=== PATIENT | female | born 1960 | race Native Hawaiian/Other Pacific Islander ===

== ENCOUNTER 2018-01-27 11:44 | Emergency (ER) | payer MEDICAID, OTHER ==
--- NOTE | 2018-01-27 12:29 | C.PDOC ---
History Of Present Illness 57 year old female presents to the ER with a complaint of left knee pain and right shoulder pain since yesterday. Denies fall, direct trauma, weakness, or numbness. Chief Complaint (Nursing): Lower Extremity Problem/Injury History Per: Patient History/Exam Limitations: no limitations Onset/Duration Of Symptoms: Days Current Symptoms Are (Timing): Still Present Recent travel outside of the [place]: No Past Medical History Reviewed: Historical Data, Nursing Documentation, Vital Signs Vital Signs: Last Vital Signs Temp 98.1 F 01/27/18 13:45 Pulse 73 01/27/18 13:45 Resp 16 01/27/18 13:45 BP 164/76 H 01/27/18 13:45 Pulse Ox 97 01/27/18 16:18 - Medical History PMH: HTN, Hypercholesterolemia Family History: States: Unknown Family Hx - Social History Hx Alcohol Use: No Hx Substance Use: No - Immunization History Hx Tetanus Toxoid Vaccination: No Hx Influenza Vaccination: No Hx Pneumococcal Vaccination: No Review Of Systems Musculoskeletal: Positive for: Shoulder Pain, Leg Pain Neurological: Negative for: Weakness, Numbness Physical Exam - Physical Exam Appears: Non-toxic, No Acute Distress Skin: Normal Color, Warm, Dry Head: Atraumatic, Normacephalic Eye(s): bilateral: Normal Inspection Extremity: Other (Left knee suprapatellar effusion with arthritic changes, diffuse tenderness, and decreased ROM. Right shoulder with diffuse tenderness and decreased ROM.) Neurological/Psych: Oriented x3, Normal Speech, Normal Motor, Normal Sensation ED Course And Treatment O2 Sat by Pulse Oximetry: 97 (Room air) Pulse Ox Interpretation: Normal Progress Note: Motrin administered. Left knee and right shoulder x-ray ordered. Disposition - Disposition Referrals: Eugene Epstein III, MD [Staff Provider] - Isma Guevara MD [Staff Provider] - Disposition: HOME/ ROUTINE Disposition Time: 12:20 Condition: GOOD Additional Instructions: Thank you for letting us take care of you today. The emergency medical care you received today was directed at your acute symptoms. If you were prescribed any medication, please fill it and take as directed. It may take several days for your symptoms to resolve. Return to the Emergency Department if your symptoms worsen, do not improve, or if you have any other problems. Please contact your doctor or call one of the physicians/clinics you have been referred to that are listed on the Patient Visit Information form that is included in your discharge packet. Bring any paperwork you were given at discharge with you along with any medications you are taking to your follow up visit. Our treatment cannot replace ongoing medical care by a primary care provider (PCP) outside of the emergency department. Thank you for allowing the [facility] team to be part of your care today. Follow up with your primary doctor and the orthopedic doctor in 3-5 days for re- evaluation and further management. Prescriptions: traMADol [Ultram] 50 mg PO Q8 PRN #15 tab PRN Reason: Pain, Severe (8-10) Instructions: Osteoarthritis (DC), Knee Pain (DC) Forms: [facility] (Kazakh) - Clinical Impression Clinical Impression: Arthritis, Joint pain - Scribe Statement The provider has reviewed the documentation as recorded by the Scribbreanna Akins All medical record entries made by the Scribe were at my direction and personally dictated by me. I have reviewed the chart and agree that the record accurately reflects my personal performance of the history, physical exam, medical decision making, and the department course for this patient. I have also personally directed, reviewed, and agree with the discharge instructions and disposition.
[2018-01-27 13:46] VITALS: BP 164/76; PULSE 73; RESP 16; TEMP 98.1
--- NOTE | 2018-01-27 13:58 | RAD ---
PROCEDURE: Radiographs of the Right Shoulder HISTORY: Rule out fracture COMPARISON: No prior. FINDINGS: BONES: Normal. No fracture. JOINTS: Normal. Glenohumeral and acromioclavicular joints preserved. 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 OTHER FINDINGS: Questionable vessel on-end artifact right suprahilar region versus is small right suprahilar nodule. Followup nonemergent CT scan of the chest recommended for further evaluation IMPRESSION: No evidence of acute displaced fracture nor dislocation. Mild degenerative osteoarthritis right glenohumeral and acromioclavicular joints. Probable vessel on end artifact versus small nodule right suprahilar region. Followup nonemergent CT scan chest recommended for further evaluation
--- NOTE | 2018-01-27 13:59 | RAD ---
PROCEDURE: Left Knee Radiographs. HISTORY: Pain. COMPARISON: None. FINDINGS: BONES: No evidence of acute displaced fracture nor dislocation. The osseous structures appear intact. JOINTS: Tricompartmental degenerative osteoarthritis most notably affecting the medial and patellofemoral compartments. . Lateral marginal osteophyte seen projecting off of the lateral tibial plateau and lateral femoral condyles. Small medial marginal osteophyte formation noted. Slight spurring of the tibial spines. JOINT EFFUSION: Large suprapatellar joint effusion. OTHER FINDINGS: None. IMPRESSION: No definitive radiographic evidence of acute displaced fracture nor dislocation. Tricompartmental degenerative osteoarthritis most notably affecting the lateral and patellofemoral compartments. Large suprapatellar joint effusion.
[2018-01-27 16:17] VITALS: O2SAT 97
== END 2018-01-27 14:31 | disposition home or self-care (01) ==
LOC: C.ER 11:44
DX: M25.562 Pain in left knee (principal); M25.511 Pain in right shoulder

== ENCOUNTER 2018-02-03 12:33 | Emergency (ER) | payer MEDICAID, OTHER ==
[2018-02-03 12:48] VITALS: TEMP 98.4; O2SAT 100
[2018-02-03] MEDS ORDERED: Lidocaine 1% Inj (20ml) INFIL ONE (13:14)
[2018-02-03] MEDS ORDERED: Oxycodone/Acetaminophen 5/325 mg Tab PO STA (13:16)
[2018-02-03] MEDS ORDERED: Lidocaine Hydrochloride 10 ML INJ ONE (13:24)
[2018-02-03] MEDS ORDERED: Oxycodone/Acetaminophen 5/325 mg Tab ONE (13:24)
[2018-02-03 13:56] LABS: BASO # 0.1 K/uL (0.0-0.2); BASO % 0.9 % (0.0-2.0); EOS # 0.2 K/uL (0.0-0.7); EOS % 3.2 % (0.0-4.0); HEMOGLOBIN 12.3 g/dL (11.0-16.0); LYMPH # 1.4 K/uL (1.0-4.3); LYMPH % 23.6 % (20.0-40.0); MEAN CELL VOLUME 91.5 fL (81.0-99.0); MEAN CORPUSCULAR HEMOGLOBIN 31.6 pg (27.0-31.0); MEAN CORPUSCULAR HGB CONC 34.5 g/dL (33.0-37.0); MEAN PLATELET VOLUME 8.4 fL (7.2-11.7); MONO # 0.6 K/uL (0.0-0.8); MONO % 10.3 % (0.0-10.0); NEUT # 3.8 K/uL (1.8-7.0); RBC 3.89 Mil/uL (3.80-5.20); WHITE BLOOD COUNT 6.1 K/uL (4.8-10.8)
[2018-02-03 14:04] LABS: INR 4.5
[2018-02-03 14:08] LABS: ALBUMIN 3.6 g/dL (3.5-5.0); ALT/SGPT 33 U/L (9-52); AST/SGOT 28 U/L (14-36); BLOOD UREA NITROGEN 11 mg/dL (7-17); CALCIUM 8.9 mg/dl (8.6-10.4); GFR AFRICAN-AMERICAN > 60; GFR NON-AFRICAN AMERICAN > 60
[2018-02-03 14:14] LABS: PROTHROMBIN TIME 49.1 SECONDS (9.7-12.2)
--- NOTE | 2018-02-03 14:46 | C.PDOC ---
History Of Present Illness 57-year-old female, presents to the emergency department with complaints of right popliteal pain x5 days. Patient denies any trauma or injury. No fevers or chills, no other joint injury. Time Seen by Provider: 02/03/18 13:07 Chief Complaint (Nursing): Lower Extremity Problem/Injury History Per: Patient History/Exam Limitations: no limitations Past Medical History Reviewed: Historical Data, Nursing Documentation, Vital Signs Vital Signs: Last Vital Signs Temp 98.4 F 02/03/18 12:42 Pulse 67 02/03/18 15:14 Resp 20 02/03/18 15:14 BP 159/78 H 02/03/18 15:14 Pulse Ox 100 02/03/18 16:21 - Medical History PMH: HTN, Hypercholesterolemia Family History: States: No Known Family Hx - Social History Hx Alcohol Use: No Hx Substance Use: No - Immunization History Hx Tetanus Toxoid Vaccination: No Hx Influenza Vaccination: No Hx Pneumococcal Vaccination: No Review Of Systems Musculoskeletal: Positive for: Other (right knee pain) Physical Exam - Physical Exam Appears: Non-toxic, No Acute Distress Skin: Normal Color, Warm, Dry, No Rash Head: Normacephalic Eye(s): bilateral: PERRL Neck: Normal ROM Extremity: Tenderness (right popliteal region tenderness), No Deformity, Other ( no gross deformity, no redness, (+) pulses equal bilaterally at dp/pt ) Neurological/Psych: Oriented x3, Normal Speech ED Course And Treatment - Laboratory Results Result Diagrams: 02/03/18 13:52 02/03/18 13:52 O2 Sat by Pulse Oximetry: 100 (RA) Pulse Ox Interpretation: Normal Medical Decision Making Medical Decision Making: Impression: Knee pain Disposition Counseled Patient/Family Regarding: Studies Performed, Diagnosis, Need For Followup, Rx Given - Disposition Referrals: [facility] [Outside] [facility] [Outside] Disposition: HOME/ ROUTINE Disposition Time: 14:43 Condition: STABLE Additional Instructions: 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 in 2 days call to make an appointment hold coumadin for one day take medications as prescribed return to ER if symptoms worsens progress or worsens rest, ice, elevate when sitting Prescriptions: Docusate Sodium [Colace] 100 mg PO BID PRN #12 capsule PRN Reason: Constipation Lidocaine 5% [Lidoderm] 1 ea TD DAILY PRN #12 patch PRN Reason: Pain, Moderate (4-7) oxyCODONE/Acetaminophen [Percocet 5/325 mg Tab] 1 ea PO TID PRN #12 tab PRN Reason: Pain, Moderate (4-7) Instructions: Knee Pain (DC) Forms: [facility] (Icelandic), General Discharge Instructions - Clinical Impression Clinical Impression: Knee effusion - Scribe Statement The provider has reviewed the documentation as recorded by the Scribe (Rosa Garza) All medical record entries made by the Scribe were at my direction and personally dictated by me. I have reviewed the chart and agree that the record accurately reflects my personal performance of the history, physical exam, medical decision making, and the department course for this patient. I have also personally directed, reviewed, and agree with the discharge instructions and disposition.
[2018-02-03 15:14] VITALS: BP 159/78; PULSE 67; RESP 20
== END 2018-02-03 15:30 | disposition home or self-care (01) ==
LOC: C.ER 12:33
DX: M25.462 Effusion, left knee (principal); Z53.8 Procedure and treatment not carried out for other reasons

== ENCOUNTER 2018-04-25 07:49 | Day surgery (SDC) | payer OTHER ==
[2018-04-17 09:06] VITALS: BMI 32.5
[~2018-04-25 07:49] MED LIST: Carbachol 0.01% IO ONE; Chondroitin/Hyaluronate Opth Syringe KIT (0.55 ml-0.5 ml) IO ONE; Hyaluronidase Human, Recombi 150 U/ML VIAL ONE; Lidocaine 2% MPF (5 ml) Inj ONE; Povidone Iodine Ophthalmic 5% Soln ONE; Tetracaine 0.5% Ophth (OR ONLY) ONE; Tobramycin/Dexamethasone OPHT OINT ONE
[2018-04-25] MEDS ORDERED: Ciprofloxacin 0.3% OPTH SOLN OS SCH (08:30)
[2018-04-25] MEDS ORDERED: Flurbiprofen 0.03% Opht SOLN OS SCH (08:30)
[2018-04-25] MEDS ORDERED: Tropicamide 1% Opht SOLUTION OS SCH (08:30)
[2018-04-25] MEDS ORDERED: Phenylephrine 2.5% Opht Soln OS SCH (08:30)
[2018-04-25] MEDS ORDERED: Midazolam 2 MG/2 ML VIAL ONE (09:38)
[2018-04-25] MEDS ORDERED: Lactated Ringer's 1,000 ML IV ONE (09:40)
[2018-04-25] MEDS ORDERED: Lactated Ringer's 500 ML IV ONE (10:18)
[2018-04-25] MEDS ORDERED: acetaZOLAMIDE 500 mg SR Cap PO ONE (11:16)
[2018-04-25 11:45] VITALS: BP 132/74; PULSE 75; RESP 16; TEMP 97.5; O2SAT 99
--- NOTE | 2018-04-25 16:09 | OP ---
PROCEDURE DATE: 04/25/2018 PREOPERATIVE DIAGNOSIS: Hypermature cataract, left eye. POSTOPERATIVE DIAGNOSIS: Hypermature cataract, left eye. OPERATIVE PROCEDURE: Phacoemulsification of left eye with utilization of the capsular dye. SURGEON: Edgar Patricia MD CO-SURGEON: Zan Schmidt MD ANESTHESIA: Local with intravenous sedation. PROCEDURE: The patient was brought into the operating room and placed in supine position, prepped and draped in the usual fashion for ophthalmic surgery. Lid speculum inserted, lids and exposing globe. On inspection, there was noted to be a hypermature cataract. A side-port incision was made superiorly and inferiorly with disposable sharp blade. An air bubble was injected in the anterior chamber followed by capsular dye to stain the anterior capsule. The dye was irrigated out of the anterior chamber with balanced salt solution. The anterior chamber was deepened with Viscoat. A near clear corneal incision was made temporally with a 2.75-mm keratome. Capsulorrhexis was performed with Utrata forceps. Hydrodissection was carried out with balanced salt solution. The nucleus was then phacoemulsified. Remaining cortical fragments were aspirated with a split irrigation and aspiration system. The capsular sac was filled with Provisc. Posterior chamber lens was injected into the sac and rotated into horizontal position. Provisc was aspirated out of the anterior chamber. Pupil was constricted with Miochol. The wound was hydrated with balanced salt solution and found to be watertight. Topical Timoptic, Betadine, TobraDex ointment, and pressure patch were applied. The patient tolerated the procedure well. Edgar Patricia MD
== END 2018-04-25 11:32 | disposition home or self-care (01) ==
LOC: C.SDS 07:49
PROVIDERS: ATTEND Ophthalmology
DX: H25.12 Age-related nuclear cataract, left eye (principal)
CPT/HCPCS: 66984; J2250; J3010; J3470; J7120; V2632

== ENCOUNTER 2018-05-09 07:30 | Day surgery (SDC) | payer OTHER ==
[2018-04-17 09:06] VITALS: BMI 32.5
[~2018-05-09 07:30] MED LIST changes: -Chondroitin/Hyaluronate Opth Syringe KIT (0.55 ml-0.5 ml) IO ONE; +Ciprofloxacin 0.3% OPTH SOLN OD SCH; +Flurbiprofen 0.03% Opht SOLN OD SCH; -Hyaluronidase Human, Recombi 150 U/ML VIAL ONE; +Lactated Ringer's 500 ML IV ONE; +Phenylephrine 2.5% Opht Soln OD SCH; -Povidone Iodine Ophthalmic 5% Soln ONE; -Tobramycin/Dexamethasone OPHT OINT ONE; +Tropicamide 1% Opht SOLUTION OD SCH; +acetaZOLAMIDE 500 mg SR Cap PO ONE
[2018-05-09] MEDS ORDERED: Chondroitin/Hyaluronate Opth Syringe KIT (0.55 ml-0.5 ml) IO ONE (07:55)
[2018-05-09] MEDS ORDERED: Hyaluronidase Human, Recombi 150 U/ML VIAL ONE (07:55)
[2018-05-09] MEDS ORDERED: Ofloxacin 0.3% Ophth Soln OD SCH (08:15)
[2018-05-09] MEDS ORDERED: Ketorolac Tromethamine 0.5% Opth Soln (3 ml) OD SCH (08:15)
[2018-05-09] MEDS ORDERED: Tropicamide 0.5% Opht Sol OD SCH (08:15)
[2018-05-09] MEDS ORDERED: Lactated Ringer's 1,000 ML IV ONE (09:12)
[2018-05-09 10:14] LABS: PROTHROMBIN TIME 10.8 SECONDS (9.7-12.2)
[2018-05-09] MEDS ORDERED: Lidocaine 2% MPF (5 ml) Inj INJ ONE (10:45)
[2018-05-09] MEDS: Tobramycin/Dexamethasone OPHT OINT ONE ×2 (10:52→11:06)
[2018-05-09] MEDS ORDERED: Midazolam 2 MG/2 ML VIAL ONE (11:09)
[2018-05-09] MEDS ORDERED: acetaZOLAMIDE 500 mg SR Cap PO SCH (11:30)
[2018-05-09] MEDS ORDERED: acetaZOLAMIDE 500 mg SR Cap PO STA (11:30)
[2018-05-09 11:52] VITALS: O2SAT 100
[2018-05-09 13:21] VITALS: BP 149/79; PULSE 64; RESP 15; TEMP 97.7
--- NOTE | 2018-05-09 22:50 | OP ---
Copied To: Edgar Patricia MD Attending MD: Edgar Patricia MD PROCEDURE DATE: 05/09/2018 PREOPERATIVE DIAGNOSIS: Cataract, right eye. POSTOPERATIVE DIAGNOSIS: Cataract, right eye. OPERATIVE PROCEDURE: Phacoemulsification, right eye, insertion of posterior chamber lens implant. SURGEON: Dr. Patricia. CO-SURGEON: Zan Schmidt MD ANESTHESIA TYPE: Local intravenous sedation. PROCEDURE: The patient was brought into the operating room, placed in supine position, prepped and draped in the usual fashion for ophthalmic surgery. Lid speculum was inserted, lids and exposing globe. A side-port incision was made superiorly and inferiorly with a disposable sharp blade. Anterior chamber was filled with Viscoat. A near clear corneal incision was made temporally with a 2.75-mm keratome. Capsulorrhexis was then performed with Utrata forceps. Hydrodissection carried out with balanced salt solution. Nucleus was phacoemulsified. Remaining cortical fragments were removed with a split irrigation and aspiration system. The capsular sac was filled with Provisc. A posterior chamber lens was then injected into the capsular sac and rotated into horizontal position. Provisc was aspirated out of the anterior chamber. The pupil was constricted with Miochol. The wound was found to be watertight. Topical Betadine, Timoptic, and TobraDex ointment and pressure patch were applied. The patient tolerated the procedure well. Edgar Patricia MD
== END 2018-05-09 12:10 | disposition home or self-care (01) ==
LOC: C.SDS 07:30
PROVIDERS: ATTEND Ophthalmology
DX: H25.11 Age-related nuclear cataract, right eye (principal)
CPT/HCPCS: 36415; 66984; 85610; 85730; J2250; J3010; J3470; J7120

== ENCOUNTER 2019-01-11 08:40 | Outpatient (CLI) | payer OTHER | END 2019-01-11 08:41 | disposition home or self-care (01) | LOC: C.CARD 08:40 | DX: R06.02 Shortness of breath (principal); I10 Essential (primary) hypertension ==